=== PATIENT | male | born 1995 | race Two or more races ===

== ENCOUNTER 2022-09-28 16:44 | Inpatient (IN) | payer SELFPAY ==
[~2022-09-28] VITALS: Ht 182.9 cm; Wt 81.0 kg
[2022-09-28 18:57] LABS: COVID AG,FIA SOURCE NASOPHARYNGEAL
[2022-09-28 19:10] LABS: BASOPHILS % (AUTO) 0.3 % (0.0-2.0); EOSINOPHILS % (AUTO) 0.1 % (1.0-6.0); HEMATOCRIT 47.7 % (41-53); LYMPHOCYTES # (AUTO) 1.3 K/uL (1.0-4.8); LYMPHOCYTES % (AUTO) 11.5 % (22.0-44.0); MEAN CORPUSCULAR HEMOGLOBIN 31.4 pg (26.0-34.0); MEAN CORPUSCULAR HGB CONC 33.5 G/dL (31.0-37.0); MEAN CORPUSCULAR VOLUME 94 fL (80-100); MONOCYTES # (AUTO) 0.7 K/uL (0.1-1.0); MONOCYTES % (AUTO) 6.1 % (2.0-9.0); NEUTROPHILS # (AUTO) 9.1 K/uL (1.8-7.7); PLATELET COUNT (AUTO) 339 K/uL (150-450); RED BLOOD CELL COUNT(AUTO) 5.08 MIL/uL (4.50-5.90); RED CELL DISTRIBUTION WIDTH 13.4 % (11.5-14.5)
[2022-09-28 19:25] LABS: ALANINE AMINOTRANSFERASE 28 U/L (12-78); ALBUMIN 4.8 g/dL (3.4-5.0); ALKALINE PHOSPHATASE 77 U/L (46-116); ANION GAP 11 mmol/L (8-16); ASPARTATE AMINOTRANSFERASE 35 U/L (15-37); BILIRUBIN,TOTAL 1.4 mg/dL (0.1-1.0); CALCIUM, TOTAL 8.7 mg/dL (8.8-10.5); CARBON DIOXIDE 26 mmol/L (22-29); CHLORIDE 106 mmol/L (98-107); CREATININE 1.38 mg/dL (0.60-1.30); GLOMERULAR FILTR. RATE CALC > 60 mL/min (>60); GLUCOSE,RANDOM 115 mg/dL (70-110); SODIUM SERUM 143 mmol/L (136-145); UREA NITROGEN, BLOOD 8 mg/dL (7-18)
[2022-09-28 19:42] LABS: POTASSIUM 2.9 mmol/L (3.5-5.1)
[2022-09-28] MEDS ORDERED: POTASSIUM CHLORIDE 20 MEQ ER TABLET PO ONE (19:45)
[2022-09-28] MEDS: PERTUSS(ACELL),DIPH,TET VAC/PF 0.5 ML SYRINGE IM. ONE ×2 (20:10→20:17)
[2022-09-28] MEDS ORDERED: LORazepam 2 MG TABLET PO PRN (22:00)
[2022-09-28] MEDS ORDERED: HALOPERIDOL 5 MG TABLET PO PRN (22:00)
[2022-09-28] MEDS ORDERED: ZOLPIDEM TARTRATE 10 MG TABLET PO PRN (22:00)
[2022-09-29] VITALS (8 sets, daily range): BP systolic 117–126; BP diastolic 75–82
[2022-09-29] MEDS ORDERED: LOPERAMIDE HCL 2 MG CAPSULE PO PRN (09:00)
[2022-09-29] MEDS ORDERED: BACITRACIN 28 GM OINTMENT TP PRN (09:00)
[2022-09-29] MEDS ORDERED: PETROLATUM,WHITE 28 GM JELLY TP PRN (09:00)
[2022-09-29] MEDS ORDERED: MAGNESIUM HYDROXIDE SUSPENSION 30 ML UDCUP PO PRN (09:00)
[2022-09-29] MEDS ORDERED: MAG HYDROX/AL HYDROX/SIMETH ES 30 ML SUSPENSION UDCUP PO PRN (09:00)
[2022-09-29] MEDS ORDERED: IBUPROFEN 600 MG TABLET PO PRN (09:00)
[2022-09-29] MEDS ORDERED: CloNIDine HCL 0.1 MG TABLET PO PRN (09:00)
[2022-09-29] MEDS ORDERED: ONDANSETRON HCL 4 MG TABLET PO PRN (09:00)
[2022-09-29] MEDS ORDERED: ALBUTEROL SULFATE HFA 90 MCG/PUFF 8 GM INHALER IH PRN (09:00)
[2022-09-29] MEDS ORDERED: OMEPRAZOLE 20 MG CAPSULE PO PRN (09:00)
[2022-09-29] MEDS ORDERED: ACETAMINOPHEN 325 MG TABLET PO PRN (09:00)
[2022-09-29] MEDS ORDERED: BENZOCAINE/MENTHOL LOZENGE PO PRN (09:00)
[2022-09-29] MEDS ORDERED: DOCUSATE SODIUM 100 MG CAPSULE PO PRN (09:00)
[2022-09-30 01:57] VITALS: BP 110/75
[2022-09-30 02:00] VITALS: BP 106/69
[2022-09-30 06:00] VITALS: BP 124/79
[2022-09-30 09:43] VITALS: BP 130/70
[2022-09-30 20:00] VITALS: BP 147/73
[2022-10-01 08:15] VITALS: BP 113/70
== END 2022-10-01 15:55 | disposition home or self-care (01) | DRG 885 ==
LOC: EMS 16:46 → B3A 09-29 00:01 → B2S 09-29 15:00
PROVIDERS: ADMIT Psychiatry & Neurology Psychiatry; ATTEND Psychiatry & Neurology Psychiatry
PROC: 0HQDXZZ Repair Right Lower Arm Skin, External Approach (ICD-10-PCS; principal; 2022-09-29)
DX: F25.9 Schizoaffective disorder, unspecified (principal); R45.851 Suicidal ideations; F10.129 Alcohol abuse with intoxication, unspecified; E87.6 Hypokalemia; F32.9 Major depressive disorder, single episode, unspecified; F41.9 Anxiety disorder, unspecified; G47.00 Insomnia, unspecified; F15.90 Other stimulant use, unspecified, uncomplicated; S61.521A Laceration with foreign body of right wrist, initial encounter; Z20.822 Contact with and (suspected) exposure to COVID-19; W26.0XXA Contact with knife, initial encounter; Y93.89 Activity, other specified; Y92.89 Other specified places as the place of occurrence of the external cause; Y99.8 Other external cause status; Z59.00 Homelessness unspecified; Z79.899 Other long term (current) drug therapy
CPT/HCPCS: 80053; 84132; 85025; 90715; 99285; G0480